=== PATIENT | female | born 1975 | race Caucasian/White ===

== ENCOUNTER → 2017-02-20 | Outpatient (CLI) | payer MEDICAID ==
--- NOTE | 2017-02-23 09:40 | RADIOLOGY REPORT PS360 ---
US THYROID US CYST ASPIRATION, FNA/W GUIDANCE, Ordering Physician: Davi Monique MD Patient Age: 41 years: Female HISTORY: GOITERthyroid nodule bilateral TECHNIQUE: 1. Ultrasound both right and left lobe with MW scanning and Dr. Wadsworth observing 2. Subsequent ultrasound guided FNA biopsy performed by Dr. Wadsworth at dominant lobulated nodule posterior aspect mid right lobe FINDINGS AND PROCEDURE: --ULTRASOUND THYROID BILATERAL; Right and left lobe were surveyed.. I personally observed images with technologist ZAC and then scanned. It is Is clearer on this repeat scanning that the most dominant evident & lobulated nodule is seen at the posterior mid right lobe.- Thus this was the area that was targeted.. This solid Nodule appears more lobulated a real-time imaging and appreciated on previous images submitted in PACS..- Immediate adjacent at its superior aspect is a area of lobulation or second nodule measuring 1.1 cm superior to it, such as a whole area spans up to 2 cm cm maximally length if both areas included.. Actually this dumbbell appearance of this nodule can be seen in retrospect previous studies but apparently were measured as 2 separate nodules but appear to be confluence on today's study. I would note the both areas were sampled subsequent FNA These images also determined the best approach for access to perform aspiration biopsy of this nodule. Scanning by Dr. Wadsworth The left lobe was also scanned and the findings are seen to be less can concerning, only vague ill-defined nodularity less evident today with only vague features here. A few few small cyst s at the lower pole which I feel overall exaggerated its appearance on previous studies. This vague area pole left measuring just over 1 cm.. You may want to follow this area and 6-9 months to ensure stability --ULTRASOUND-GUIDED FNA BIOPSY dominant lobulated right lobe nodule. Following sterile preparation as well as local skin, and cautious deeper placement of Xylocaine anesthetic . I would also the patient received Xanax 1 mg and Lortab5 Prior to the procedure for comfort and mild sedation. Under ultrasound guidance the 25-gauge hypodermic biopsy needle, was advanced to the nodule and positioned. Needle tip was observed passing into the nodule on each of 5 FNA biopsies passes. Both areas of the bilobed nodule Generous FNA specimen material obtained and subsequently submitted to cytopathology. Patient tolerated procedure well. IMPRESSION: With the initial thyroid ultrasound scanning by myself along with technologist ZAC, it was clearly evident that the most concerning dominant bilobed solid nodule is seen at the posterior mid right lobe. On real-time imaging this area in total up to 2 cm size. This may been addressed as 2 separate nodules previous recent ultrasound thyroid report, but with our scanning are clearly fluid and appear to be a single bilobed nodule today, this this most suspicious area biopsied. In contrast containing at the lower pole left lobe thyroid demonstrates only vague of ill-defined area with scattered cysts. No well-defined nodule. Thus this area at the lower pole left lobe can be followed. Consider ultrasound follow-up in 6-9Months bilateral. Subsequent FNA biopsy of right lobe nodule. A total of 5 passes performed addressing both areas of this dominant bilobed nodule . Generous sample material was submitted for cytology CYTOPATHOLOGY Report:. Negative for malignancy. Compatible benign follicular nodule
== END ==
LOC: RAD 08:29
PROC: 0G9H3ZX Drainage of Right Thyroid Gland Lobe, Percutaneous Approach, Diagnostic (ICD-10-PCS; principal; 2017-02-20)
DX: E04.9 Nontoxic goiter, unspecified (principal)

== ENCOUNTER → 2017-06-13 | Outpatient (CLI) | payer MEDICAID ==
[~2017-06-13] MED LIST: MEDROL 4MG. DOSE4 MG PO; PROVENTIL0.09 MG/Ac IH; ZITHROMAX Z PA250 MG PO
--- NOTE | 2017-06-13 17:21 | RADIOLOGY REPORT PS360 ---
US THYROID HISTORY: ENLARGED THYROID,HYPOTHYROIDISM ORDERING PHYSICIAN: Davi Monique MD PATIENT AGE: 41 years COMPARISON: 02/03/2017 FINDINGS: The right lobe is 4.9 x 1.5 x 2.4 cm. 6 mm complex cyst midpole unchanged, 3 mm cyst midpole unchanged. Ill-defined 14 mm area mid pole. This may be due to heterogeneous echogenicity as opposed to a nodule. Not identified previously probably related to the technique. 7 mm hypoechoic nodule lower pole unchanged, 14 mm hypoechoic nodule lower pole spongiform appearance unchanged. Spongiform hypoechoic nodule inferior pole probably present previously but not well demonstrated on the previous exam Left lobe is 4.8 x 1.3 x 2.1 cm. 7 mm spongiform nodule superior not previously demonstrated. 13 mm cystic and solid nodule inferiorly. This is ill-defined and may be a combination of smaller nodules and may been present previously but not as well demonstrated. IMPRESSION: Multinodular goiter as detailed above. Scanning techniques are different from this exam compared to 02/03/2017. There is heterogeneous echogenicity noted in the mid pole on the right and 14 mm probably related to heterogeneous echogenicity as opposed to true nodule. There is a spongiform area in the lower pole on the right at 17 mm likely due to combination of previously described nodule and an additional nodule which was not well-demonstrated probably unchanged Consider 6 month follow-up was same scanning technique as the day to confirm short-term stability
== END ==
LOC: RAD 15:11
DX: E01.0 Iodine-deficiency related diffuse (endemic) goiter (principal); E03.9 Hypothyroidism, unspecified

== ENCOUNTER → 2017-10-02 | Outpatient (CLI) | payer MEDICAID ==
[2017-10-02 15:30] LABS: HEMOGLOBIN 12.9 g/dL (12.2-16.2); LYMPH # 3.8 K/mm3 (0.7-4.5)
[2017-10-02 18:17] LABS: BUN 7 mg/dL (7-18)
[2017-10-02 18:19] LABS: GFR (ESTIMATED) 111 ML/MIN (59-)
[2017-10-04 08:53] LABS: RA Latex Turbid. <10.0 IU/mL (0.0-13.9)
[2017-10-04 16:36] LABS: Antinuclear Antibodies, IFA Positive (.)
[2017-10-05 03:38] LABS: CCP Antibodies IgG/IgA <1 units (0-19); PTT-LA 34.4 sec (0.0-51.9); dRVVT 34.1 sec (0.0-47.0)
[2017-10-05 10:39] LABS: Lupus Reflex Interpretation Comment: (.)
[2017-10-06 12:36] LABS: AChR Blocking Abs 13 % (0-25)
[2017-10-06 16:37] LABS: AChR Binding Abs 0.42 nmol/L (0.00-0.24)
[2017-10-17 09:37] LABS: AChR Modulating Ab <12 % (0-20)
== END ==
LOC: LAB 14:37
PROVIDERS: Physician Assistant
DX: M62.81 Muscle weakness (generalized) (principal); M25.50 Pain in unspecified joint; R53.82 Chronic fatigue, unspecified

== ENCOUNTER → 2017-10-12 | Outpatient (CLI) | payer MEDICAID ==
--- NOTE | 2017-10-13 08:41 | RADIOLOGY REPORT PS360 ---
MRI-BRAIN W/O HISTORY: Headache, dizziness, nausea, blurred vision FALLING ORDERING PHYSICIAN: Paulino Metz MD PATIENT AGE: 41 years COMPARISON: None TECHNIQUE: Standard multiplanar multiecho sequences are performed without contrast. FINDINGS: No midline shift, mass effect, intracranial hemorrhage, hydrocephalus, or acute infarction is evident. No intra or extra-axial mass or fluid collection is evident. The cerebellopontine angle, cerebellum, and brainstem are unremarkable. No abnormal restricted diffusion. The pituitary, optic chiasm, and corpus callosum are unremarkable. No cerebellar ectopia. There is normal hernandes-white matter differentiation with no abnormal white matter signal intensity evident. Hippocampal gyri are unremarkable in the temporal horns are symmetric.. There is a cavum septum pellucidum as a normal variant. No large aneurysms are apparent. Small aneurysms may go undetected without MRA. No sinus air-fluid level or mastoid effusion IMPRESSION: Negative MRI of the brain without contrast
== END ==
LOC: RAD 13:33
DX: R29.6 Repeated falls (principal)